=== PATIENT | male | born 1970 | race American Indian/Alaskan Native ===

== ENCOUNTER 2019-05-13 08:36 | Day surgery (SDC) | payer OTHER ==
[~2019-05-13 08:36] MED LIST: NACL 0.9% 1000 ML 1,000 ML IV SCH
--- NOTE | 2019-05-13 09:11 | Anesthesia Day of Surgery ---
Anesthesia Day of Surgery - Day of Surgery Patient Examined: Yes Patient H&P Reviewed: Yes Patient is NPO: Yes
--- NOTE | 2019-05-13 09:11 | Anesthesia Consultation ---
Anesthesia Consult and Med Hx Date of service: 05/13/19 - Airway Anesthetic Teeth Evaluation: Good ROM Head & Neck: Adequate Mental/Hyoid Distance: Adequate Mallampati Class: Class II Intubation Access Assessment: Probably Good - Pre-Operative Health Status ASA Pre-Surgery Classification: ASA2 Proposed Anesthetic Plan: MAC - Cardiovascular System Hx Hypertension: Yes - Other Systems Hx Obesity: Yes (overweight)
[2019-05-13] MEDS ORDERED: DIPRIVAN 10 MG/ML IV ONE ×2 (09:51)
[2019-05-13] MEDS ORDERED: WATER FOR IRRIG STERILE ONE (09:57)
[2019-05-13] MEDS ORDERED: WATER FOR IRRIG STERILE IR ONE (09:57)
--- NOTE | 2019-05-13 10:17 | Operative Report ---
Operative Report Operative Report: Procedure: Colonoscopy with Hot biopsy polypectomy. Attending physician: Gregor Macias M.D. Patient Account Specialist: Gregor Macias M.D. Indication: Patient is a 49-year-old male who presents for colorectal cancer screening and screening for lower digestive tract diseases.. This colonoscopy serves to evaluate patient so that treatment may be directed based on the findings. Consent: Informed consent was obtained after advising the patient and family regarding nature of this procedure, its indications, potential benefits as well as possible complications including but not limited to bleeding perforation and adverse reaction to medication, infection as well as other cardiopulmonary complications. An informed written and verbal consent was then obtained after due opportunity was provided for questions and answers. Monitoring: Patient was monitored continuously with pulse oximetry and elect rocardiographic recordings as well as blood pressure recordings. Vital signs remained stable throughout this procedure with no untoward events. Preoperative assessment: Patient was assessed immediately prior to this procedure for capacity to tolerate monitored anesthesia care and moderate sedation as well as general anesthesia. Patient's ASA classification is 2, Mallampati class is 2, Hyomental distance is 3. Instrument: Olympus video colonoscope CF-HQ 190L Medications: Propofol given intravenously in divided doses. For details please refer to anesthesia records. Description of procedure: Patient was placed in the left lateral decubitus position after achieving sedation, a digital rectal examination was performed following which the colonoscope was introduced into the anal verge and advanced to the cecum which was identified by the cecal valve, the appendiceal orifice, as well as by the cecal strap and direct transillumination. The colonoscope was subsequently withdrawn with careful inspection of all mucosal surfaces. [place] bowel preparation scale score : 7. : Patient had adequate colonoscopic preparation with no significant residual stool in the right colon and transverse colon and left colon. The overall preparation therefore deemed excellent with a scale score of 7. The withdrawal time from the cecum was greater than 6 minutes. Patient tolerated this procedure well and was subsequently taken to the recovery room. The following findings were noted. Findings: Patient had diverticulosis of mild severity involving the descending colon and sigmoid colon. The cecum was normal. In the ascending colon, patient had a sessile 6 mm polyp which was removed by hot biopsy polypectomy. The rest of the colon including the cecum and ascending colon transverse colon descending colon sigmoid colon and rectum was normal, except for the findings of mild diverticulosis. On a retroflexed view of the anal verge, patient had internal hemorrhoids. Impression: Ascending colon polyp status post hot biopsy polypectomy. Mild Diverticular disease of the colon. Internal hemorrhoids. Plan: Follow pathology report. High-fiber diet. Repeat colonoscopy in 5 years if polypectomy is adenomatous
--- NOTE | 2019-05-13 10:18 | Discharge Summary ---
Short Stay Discharge Plan Activity: advance as tolerated Weight Bearing Status: Weight Bear as Tolerated Diet: regular Follow up with: [facility] [Primary Care Provider] - 7 Days
[2019-05-13 10:59] VITALS: BP 115/75
--- NOTE | 2019-05-13 13:31 | Post Anesthesia Evaluation ---
- Post Anesthesia Evaluation Patient Participated: Yes Airway Patent: Yes Stable Respiratory Function: Yes Nausea/Vomiting: No Temp > 96.8F: Yes Pain Manageable: Yes Adequeate Hydration: Yes Anesthesia Complications: No Block Receding Appropriately: Not Applicable Patient on Ventilator: No
== END 2019-05-13 08:37 | disposition home or self-care (01) ==
LOC: GIO 08:36
PROVIDERS: ATTEND Internal Medicine Gastroenterology
DX: Z12.11 Encounter for screening for malignant neoplasm of colon (principal); K63.5 Polyp of colon; K57.30 Diverticulosis of large intestine without perforation or abscess without bleeding; K64.8 Other hemorrhoids; I10 Essential (primary) hypertension; E66.9 Obesity, unspecified; Z88.0 Allergy status to penicillin; Z79.899 Other long term (current) drug therapy; Z68.32 Body mass index [BMI] 32.0-32.9, adult
CPT/HCPCS: 45384; 88305; J2704; J7030